=== PATIENT | male | born 1990 ===

== ENCOUNTER 2020-08-13 20:52 | Emergency (ER) | payer OTHER ==
[~2020-08-13] VITALS: Ht 177.8 cm; Wt 100.2 kg
[~2020-08-13 20:52] MED LIST: KETO10TA2 PO; SEPTRA DS TABLE1 TAB PO
== END 2020-08-13 22:13 | disposition home or self-care (01) ==
LOC: ER 20:52
DX: S61.011A Laceration without foreign body of right thumb without damage to nail, initial encounter (principal); W26.0XXA Contact with knife, initial encounter; Y93.89 Activity, other specified; Y92.89 Other specified places as the place of occurrence of the external cause; Y99.8 Other external cause status